=== PATIENT | female | born 1960 | race Caucasian/White ===

== ENCOUNTER 2021-06-11 00:40 | Emergency (ER) | payer MEDICAID, MEDICARE, OTHER ==
[~2021-06-11] VITALS: Ht 160 cm; Wt 101.3 kg
[~2021-06-11 00:40] MED LIST: BUPR150T21 PO; Hydrocodone/Acetaminophen PO; QUET50TA5 PO
[2021-06-11 01:12] VITALS: BP 160/67
[2021-06-11] MEDS ORDERED: PRED20TA PO (01:29)
[2021-06-11] MEDS ORDERED: HYDR-2761 PO (01:29)
--- NOTE | 2021-06-11 01:29 | PHYS DOC ---
Past Medical History Past Medical History: Anxiety, Bipolar, Depression, Other Additional Past Medical Histor: smoking, obesity Past Surgical History: Splenectomy, Other Additional Past Surgical Histo: feeding tube and removal, trach and reversal, mult brain surg nos. Smoking Status: Current Every Day Smoker Alcohol Use: Occasionally Drug Use: None General Adult EDM: Chief Complaint: BACK PAIN - NO INJURY HPI: HPI: Patient is a 61 year old male presents with a chief complaint of right buttocks pain. Patient states I think I have a pinched nerve. Patient's pain started yesterday is in the right buttocks she has discomfort radiating down her her leg. Patient denies any injuries. She states she has not tried any home medications. Review of Systems: Review of Systems: Review of systems: Constitutional symptoms- No fever, no chills. Eyes- No Discharge, No Visual Loss Respiratory symptoms- No shortness of breath, No wheezing, No Dyspnea on Exertion Cardiovascular Systems; No chest pain, No Palpitations, No syncope Gastrointestinal symptoms: NO abdominal pain, no nausea, no vomiting or diarrhea. Genitourinary symptoms: No dysuria. Musculoskeletal symptoms: Positive back pain Positive extremity pain. NEUROLOGICAL Symptoms: No headache, no generalized weakness; No focal Weakness Skin: No rash. Heart Score: C/O Chest Pain: N/A Risk Factors: Risk Factors: DM, Current or recent (<one month) smoker, HTN, HLP, family history of CAD, obesity. Risk Scores: Score 0 - 3: 2.5% MACE over next 6 weeks - Discharge Home Score 4 - 6: 20.3% MACE over next 6 weeks - Admit for Clinical Observation Score 7 - 10: 72.7% MACE over next 6 weeks - Early Invasive Strategies Allergies: Allergies: Allergies Coded Allergies Type Severity Reaction Last Updated Verified diazepam Allergy Intermediate agitation 01/11/14 Yes Physical Exam: PE: General: alert, no acute distress. Skin: warm, dry and intact. HENT: bilateral external ears normal, oropharynx moist, nose normal. Head:: Normocephalic, atraumatic. Neck: Trachea midline. Eyes: EOMI, Normal conjunctiva, No drainage CARDIOVASCULAR: Regular rate and rhythm RESPIRATORY: No respiratory distress Back: Full range of motion. Tenderness to palpation right buttocks Skin: Warm, dry, no erythema, no rash. MUSCULOSKELETAL: Full range of motion of bilateral upper and lower extremities. GASTROINTESTINAL: Abdomen soft without rebound or guarding. NEUROLOGICAL: Alert and noted to person, place and time. No neurological deficits observed Psychiatric: Cooperative. Normal judgment Current Patient Data: Vital Signs: Vital Signs Date Time Temp Pulse Resp B/P (MAP) Pulse Ox O2 Delivery O2 Flow Rate FiO2 06/11/21 01:12 98.0 103 18 160/67 (89) 99 Room Air 98.0 EKG: EKG: [] Radiology/Procedures: Radiology/Procedures: [] Course & Med Decision Making: Course & Med Decision Making Pertinent Labs and Imaging studies reviewed. (See chart for details) [] Treated with hydrocodone. Discharged home with prednisone hydrocodone. Patient advised to take ibuprofen at home. Dragon Disclaimer: Dragon Disclaimer: This electronic medical record was generated, in whole or in part, using a voice recognition dictation system. Departure Departure Impression: Primary Impression: Sciatic leg pain Disposition: HOME / SELF CARE / HOMELESS Condition: STABLE Referrals: GARY LUCAS MD (PCP) Patient Instructions: Sciatica Scripts Prednisone (PREDNISONE) 20 Mg Tablet 1 TAB PO UD for 12 Days, #15 TAB Take 2 tabs days 1,2,3 1.5 tabs days 3,4,5 1 tab days 6,7,8 0.5 tab days 9,10,11 Prov: OMAR GAMING I DO 06/11/21 Hydrocodone Bit/Acetaminophen (HYDROCODONE-APAP 5-325 ) 1 Tab Tablet 1 TAB PO PRN Q6HRS PRN for PAIN, #20 TAB 0 Refills Prov: OMAR GAMING DO 06/11/21 OMAR GAMING DO Jun 11, 2021 01:29
[2021-06-11] MEDS ORDERED: HYDROcodone/APAP 5/325MG 1 TAB TABLET PO ONE (02:00)
== END 2021-06-11 02:15 | disposition home or self-care (01) ==
LOC: ER 00:40
DX: M54.41 Lumbago with sciatica, right side (principal); F31.9 Bipolar disorder, unspecified; F17.200 Nicotine dependence, unspecified, uncomplicated; Z88.8 Allergy status to other drugs, medicaments and biological substances
CPT/HCPCS: 99283

== ENCOUNTER 2021-06-18 22:53 | Emergency (ER) | payer MEDICARE ==
[~2021-06-18] VITALS: Ht 161.3 cm; Wt 100.2 kg
[~2021-06-18 22:53] MED LIST changes: +HYDR-2761 PO; +PRED20TA PO
[2021-06-18 22:55] VITALS: BP 152/85
--- NOTE | 2021-06-19 00:01 | PHYS DOC ---
Past Medical History Past Medical History: Anxiety, Bipolar, Depression, Other Additional Past Medical Histor: smoking, obesity, TBI Past Surgical History: Splenectomy, Other Additional Past Surgical Histo: feeding tube and removal, trach and reversal, mult brain surg nos. Smoking Status: Current Every Day Smoker Alcohol Use: Occasionally Drug Use: None General Adult EDM: Chief Complaint: EARACHE/EAR PAIN HPI: HPI: Patient is a 61 year old [f__sex] who presents with [] Review of Systems: Review of Systems: Constitutional: Denies fever or chills. [] Eyes: Denies change in visual acuity. [] HENT: Denies nasal congestion or sore throat. [] Respiratory: Denies cough or shortness of breath. [] Cardiovascular: Denies chest pain or edema. [] GI: Denies abdominal pain, nausea, vomiting, bloody stools or diarrhea. [] : Denies dysuria. [] Musculoskeletal: Denies back pain or joint pain. [] Integument: Denies rash. [] Neurologic: Denies headache, focal weakness or sensory changes. [] Endocrine: Denies polyuria or polydipsia. [] Lymphatic: Denies swollen glands. [] Psychiatric: Denies depression or anxiety. [] Heart Score: Risk Factors: Risk Factors: DM, Current or recent (<one month) smoker, HTN, HLP, family history of CAD, obesity. Risk Scores: Score 0 - 3: 2.5% MACE over next 6 weeks - Discharge Home Score 4 - 6: 20.3% MACE over next 6 weeks - Admit for Clinical Observation Score 7 - 10: 72.7% MACE over next 6 weeks - Early Invasive Strategies Allergies: Allergies: Allergies Coded Allergies Type Severity Reaction Last Updated Verified diazepam Allergy Intermediate agitation 01/11/14 Yes Physical Exam: PE: Constitutional: Well developed, well nourished, no acute distress, non-toxic appearance. [] HENT: Normocephalic, atraumatic, bilateral external ears normal, oropharynx moist, no oral exudates, nose normal. [] Eyes: PERRLA, EOMI, conjunctiva normal, no discharge. [] Neck: Normal range of motion, no tenderness, supple, no stridor. [] Cardiovascular:Heart rate regular rhythm, no murmur [] Lungs & Thorax: Bilateral breath sounds clear to auscultation [] Abdomen: Bowel sounds normal, soft, no tenderness, no masses, no pulsatile masses. [] Skin: Warm, dry, no erythema, no rash. [] Back: No tenderness, no CVA tenderness. [] Extremities: No tenderness, no cyanosis, no clubbing, ROM intact, no edema. [] Neurologic: Alert and oriented X 3, normal motor function, normal sensory function, no focal deficits noted. [] Psychologic: Affect normal, judgement normal, mood normal. [] Current Patient Data: Vital Signs: Vital Signs Date Time Temp Pulse Resp B/P (MAP) Pulse Ox O2 Delivery O2 Flow Rate FiO2 06/18/21 22:55 98.4 92 16 152/85 (89) 95 Room Air 98.4 EKG: EKG: [] Radiology/Procedures: Radiology/Procedures: [] Course & Med Decision Making: Course & Med Decision Making Pertinent Labs and Imaging studies reviewed. (See chart for details) [] Dragon Disclaimer: Dragon Disclaimer: This electronic medical record was generated, in whole or in part, using a voice recognition dictation system. Departure Departure Impression: Primary Impression: Impacted cerumen of left ear Disposition: HOME / SELF CARE / HOMELESS Condition: STABLE Referrals: NO PCP (PCP) Patient Instructions: Cerumen Impaction JESSICA GU DO Jun 19, 2021 00:01
== END 2021-06-19 00:34 | disposition home or self-care (01) ==
LOC: ER 22:53
DX: H61.22 Impacted cerumen, left ear (principal); F41.9 Anxiety disorder, unspecified; F32.9 Major depressive disorder, single episode, unspecified; F17.200 Nicotine dependence, unspecified, uncomplicated; E66.9 Obesity, unspecified; Z68.38 Body mass index [BMI] 38.0-38.9, adult; Z88.8 Allergy status to other drugs, medicaments and biological substances
CPT/HCPCS: 99281

== ENCOUNTER 2021-07-24 16:37 | Emergency (ER) | payer MEDICARE ==
[~2021-07-24] VITALS: Ht 160 cm; Wt 90.9 kg
[2021-07-24 19:19] VITALS: BP 140/89
--- NOTE | 2021-07-24 20:04 | PHYS DOC ---
Past Medical History Past Medical History: Anxiety, Bipolar, Depression, Other Additional Past Medical Histor: smoking, obesity, TBI Past Surgical History: Splenectomy, Other Additional Past Surgical Histo: feeding tube and removal, trach and reversal, mult brain surg nos. Smoking Status: Current Every Day Smoker Alcohol Use: Rarely Drug Use: None General Adult EDM: Chief Complaint: EARACHE/EAR PAIN HPI: HPI: Patient is a 61 year old female who presents with left ear pain for the last week. She states she was here last month for the same thing. She denies fever, loss of hearing, nasal congestion, dizziness, abdominal pain, nausea, vomiting, numbness or tingling. Patient has a history of splenectomy, anxiety, bipolar, depression, smoker, obesity, TBI. She rates her aching pain 7 out of 10. Review of Systems: Review of Systems: Constitutional: Denies fever or chills. [] Eyes: Denies change in visual acuity. [] HENT: Denies nasal congestion or sore throat. +[] Respiratory: Denies cough or shortness of breath. [] Cardiovascular: Denies chest pain or edema. [] GI: Denies abdominal pain, nausea, vomiting, bloody stools or diarrhea. [] : Denies dysuria. [] Musculoskeletal: Denies back pain or joint pain. [] Integument: Denies rash. [] Neurologic: Denies headache, focal weakness or sensory changes. [] Endocrine: Denies polyuria or polydipsia. [] Lymphatic: Denies swollen glands. [] Psychiatric: Denies depression or anxiety. [] Heart Score: C/O Chest Pain: No Risk Factors: Risk Factors: DM, Current or recent (<one month) smoker, HTN, HLP, family history of CAD, obesity. Risk Scores: Score 0 - 3: 2.5% MACE over next 6 weeks - Discharge Home Score 4 - 6: 20.3% MACE over next 6 weeks - Admit for Clinical Observation Score 7 - 10: 72.7% MACE over next 6 weeks - Early Invasive Strategies Allergies: Allergies: Allergies Coded Allergies Type Severity Reaction Last Updated Verified diazepam Allergy Intermediate agitation 01/11/14 Yes Physical Exam: PE: Constitutional: Well developed, well nourished, no acute distress, non-toxic appearance. [] HENT: Normocephalic, atraumatic, bilateral external ears normal, oropharynx moist, no oral exudates, nose normal. Left ear tympanic redness but intact. [] Eyes: PERRLA, EOMI, conjunctiva normal, no discharge. [] Neck: Normal range of motion, no tenderness, supple, no stridor. [] Cardiovascular:Heart rate regular rhythm, no murmur [] Lungs & Thorax: Bilateral breath sounds clear to auscultation [] Abdomen: Bowel sounds normal, soft, no tenderness, no masses, no pulsatile mas ses. [] Skin: Warm, dry, no erythema, no rash. [] Back: No tenderness, no CVA tenderness. [] Extremities: No tenderness, no cyanosis, no clubbing, ROM intact, no edema. [] Neurologic: Alert and oriented X 3, normal motor function, normal sensory function, no focal deficits noted. [] Psychologic: Affect normal, judgement normal, mood normal. [] Current Patient Data: Vital Signs: Vital Signs Date Time Temp Pulse Resp B/P (MAP) Pulse Ox O2 Delivery O2 Flow Rate FiO2 07/24/21 19:19 98.3 80 16 140/89 (89) 96 Room Air 98.3 EKG: EKG: [] Radiology/Procedures: Radiology/Procedures: [] Course & Med Decision Making: Course & Med Decision Making Pertinent Labs and Imaging studies reviewed. (See chart for details) See HPI. Alert and oriented x4. Ambulatory steady gait. Speaks in full clear sentences. Vital signs within normal limits. Lungs are clear all station all lobes. Right tympanic is reddened but intact. No mastoid tenderness. [] Dragon Disclaimer: Dragon Disclaimer: This electronic medical record was generated, in whole or in part, using a voice recognition dictation system. Departure Departure Impression: Primary Impression: Otitis media Qualified Codes: H66.002 - Acute suppurative otitis media without spontaneous rupture of ear drum, left ear Disposition: HOME / SELF CARE / HOMELESS Condition: STABLE Referrals: NO PCP (PCP) JOJO POOLE MD Patient Instructions: Otitis Media, Adult Additional Instructions: Follow-up with primary care provider. Drink plenty of fluids. Take medication as prescribed and with food. Take Tylenol or ibuprofen for your ear pain. I have referred you to a ears nose throat doctor. Scripts Amoxicillin (AMOXICILLIN) 500 Mg Capsule 1 CAP PO BID, #20 CAP Prov: ANGELY LUNDBERG APRN 07/24/21 ANGELY LUNDBERG APRN Jul 24, 2021 20:04
[2021-07-24] MEDS ORDERED: AMOX500C PO (20:21)
== END 2021-07-24 20:59 | disposition home or self-care (01) ==
LOC: ER 16:37
DX: H66.002 Acute suppurative otitis media without spontaneous rupture of ear drum, left ear (principal); F31.9 Bipolar disorder, unspecified; F17.200 Nicotine dependence, unspecified, uncomplicated; Z88.8 Allergy status to other drugs, medicaments and biological substances
CPT/HCPCS: 99284

== ENCOUNTER 2021-08-07 18:08 | Emergency (ER) | payer MEDICARE ==
[~2021-08-07] VITALS: Ht 161.3 cm; Wt 105.2 kg
[~2021-08-07 18:08] MED LIST changes: +AMOX500C PO
[2021-08-07 19:05] VITALS: BP 117/51
--- NOTE | 2021-08-07 19:39 | PHYS DOC ---
Past Medical History Past Medical History: Anxiety, Bipolar, Depression, Other Additional Past Medical Histor: smoking, obesity, TBI (SHELBY WELLER) Past Surgical History: Splenectomy, Other Additional Past Surgical Histo: feeding tube and removal, trach and reversal, mult brain surg nos. (SHELBY WELLER) Smoking Status: Current Every Day Smoker Alcohol Use: Rarely Drug Use: None (SHELBY WELLER) General Adult EDM: Chief Complaint: EARACHE/EAR PAIN Problems: (1) Left ear pain (SHELBY WELLER) HPI: HPI: Patient is a 61 year old female who returns to the emergency department with complaints of left ear pain. She states she has been seen in this emergency department 3 times before for the same complaints. She states the first time she was seen, she was advised to use [id number] treatments, the second time her ear was irrigated, and the third time she was given antibiotic drops. She states the pain is waxing and waning in nature and varies from 3/107/10 and describes it as pressure. Patient denies fever, chills, headache, dizziness/vertigo, vision changes, discharge from either ear, and nasal congestion. She reports that in her 20s, she had to have impacted cerumen irrigated and removed. She has never had similar ongoing symptoms that she has complaints of today. Patient was previously referred to ENT, but states that when she called to make the appointment it was going to be too expensive and so she deferred her appointment. (SHELBY WELLER) Review of Systems: Review of Systems: ROS negative except as mentioned in HPI. (SHELBY WELLER) Heart Score: C/O Chest Pain: No (SHELBY WELLER) Allergies: Allergies: Allergies Coded Allergies Type Severity Reaction Last Updated Verified diazepam Allergy Intermediate agitation 01/11/14 Yes (SHELBY WELLER) Physical Exam: PE: Constitutional: Well developed, well nourished, no acute distress, non-toxic appearance. HENT: Normocephalic, atraumatic, bilateral external ears normal. Bilateral external ears nontender on auricle, tragus or mastoid. Right ear canal cerumen impacted, TM not visualized. Left ear canal without erythema discharge or significant cerumen. Oropharynx moist, no oral exudates, nose normal. Eyes: PERRLA, EOMI, conjunctiva normal, no discharge. Neck: Normal range of motion, no tenderness, supple, no stridor. Cardiovascular:Heart rate regular rhythm, no murmur Lungs & Thorax: Bilateral breath sounds clear to auscultation (SHELBY WELLER) Current Patient Data: Vital Signs: Vital Signs Date Time Temp Pulse Resp B/P (MAP) Pulse Ox O2 Delivery O2 Flow Rate FiO2 08/07/21 19:05 98.4 89 16 117/51 (73) 97 Room Air 98.4 (NAVEEN SMITH DO) Course & Med Decision Making: Course & Med Decision Making Pertinent Labs and Imaging studies reviewed. (See chart for details) As this is the patient's fourth visit for the same complaints, and she has no evidence of infection trauma or other illness, she will be discharged with a referral to ENT. Patient was counseled on obtaining a primary care physician so that she may have a referral to see the ENT specialist. At this point in time, emergency services has little in the way of symptom resolution to offer. (SHELBY WELLER) Course & Med Decision Making I have reviewed and was available for consultation in the emergency department for this patient that was seen by midlevel provider. Agree with plan. Naveen Smith DO (NAVEEN SMITH DO) Dalila Disclaimer: Dalila Disclaimer: This electronic medical record was generated, in whole or in part, using a voice recognition dictation system. (SHELBY WELLER) Departure Departure Impression: Primary Impression: Left ear pain Disposition: HOME / SELF CARE / HOMELESS Condition: STABLE Referrals: NO PCP (PCP) Additional Instructions: It is very important that you obtain a primary care physician, so that you may obtain a referral to see the ENT specialist. Calling your insurance or the [facility] social worker palliative care would aid you in obtaining a primary care physician. SHELBY WELLER Aug 07, 2021 19:39 NAVEEN SMITH DO Aug 08, 2021 04:49
== END 2021-08-07 20:12 | disposition home or self-care (01) ==
LOC: ER 18:08
DX: H92.02 Otalgia, left ear (principal); F31.9 Bipolar disorder, unspecified; F17.200 Nicotine dependence, unspecified, uncomplicated; Z87.820 Personal history of traumatic brain injury
CPT/HCPCS: 99281